=== PATIENT | female | born 1945 | race Caucasian/White ===

== ENCOUNTER 2016-09-27 15:28 | Emergency (ER) | payer OTHER ==
[~2016-09-27] VITALS: Ht 152.4 cm; Wt 75.5 kg
[~2016-09-27 15:28] MED LIST: Ativan PO; Calcium Carbonate/Vi PO; Desyrel PO; Ecotrin PO; Feosol PO; Garlic PO; Hydrodiuril,Oretic,E PO; LIDODERM 5% P1 PATCH TD; Lopid PO; Lotensin PO; Muro-128 5% Ophth So RIGHT EYE; Norvasc PO; OMEGA 3-6-91200 MG PO; Ocuvite PO; Pravachol PO; Pred Forte 1%,Omnipr LEFT EYE; PriLOSEC PO; Senokot S,Pericolace PO; Vitamin D PO; Zoloft PO; celeBREX PO; oxyCODONE PO
[2016-09-27] MEDS ORDERED: ATIVAN2 MG PO (16:10)
[2016-09-27] MEDS ORDERED: LORAZEPAM1 MG PO (16:10)
[2016-09-27] MEDS ORDERED: CALCIUM PO (16:12)
[2016-09-27] MEDS ORDERED: PRAVASTATIN SOD40 MG PO (16:14)
[2016-09-27] MEDS ORDERED: MURO-128 5300 DROP/1 LEFT EYE (16:15)
[2016-09-27] MEDS ORDERED: AMLODIPINE BESYL5 MG PO (16:17)
[2016-09-27] MEDS ORDERED: BENAZEPRIL HCL20 MG PO (16:17)
[2016-09-27] MEDS ORDERED: AMITRIPTYLINE H10 MG PO (16:18)
[2016-09-27] MEDS ORDERED: TRIAMCINOLONE A15 G2 TP (16:18)
[2016-09-27] MEDS ORDERED: OXYCODONE-APAP1 EAC6 PO (16:19)
[2016-09-27] MEDS ORDERED: METFORMIN HCL500 M1 PO (16:20)
[2016-09-27] MEDS ORDERED: OMEPRAZOLE20 MG PO (16:20)
[2016-09-27 16:59] LABS: HEMATOCRIT 39.1 % (36.0-46.0); MCH 31.3 PG (29.0-34.0); MCHC 34.5 G/DL (30.0-36.0); MCV 90.7 FL (83-99); MEAN PLAT.VOLUME 9.7 uM^3 (9.5-12.4); PLATELET COUNT 310 K/uL (156-360); RBC DIS.WIDTH-CV 13.7 % (11.8-14.6); RED BLOOD COUNT 4.31 M/uL (3.80-5.20); WHITE BLOOD COUNT 7.9 K/uL (4.1-10.2)
[2016-09-27 17:08] LABS: CHLORIDE 101 mEq/L (99-109); POTASSIUM 3.7 mEq/L (3.7-5.4); SODIUM 140 mEq/L (136-147)
[2016-09-27 17:09] LABS: GLUCOSE 99 mg/dL (70-99)
[2016-09-27 17:11] LABS: ANION GAP 14 MEQ/L (2-14)
[2016-09-27 17:13] LABS: GFR ESTIMATE (CALCULATED) > 59 mL/min/
[2016-09-27 17:14] LABS: UREA NITROGEN (BUN) 18 mg/dL (9-23)
[2016-09-27 17:20] LABS: ADD MIUA? NO; BILIRUBIN NEGATIVE; BLOOD NEGATIVE; COLOR YELLOW ((YELLOW)); GLUCOSE (STRIP) NEGATIVE; KETONES NEGATIVE; LEUKOCYTES NEGATIVE; NITRITE NEGATIVE; PROTEIN (STRIP) NEGATIVE; SPECIFIC GRAVITY 1.012 (1.000-1.030); UROBILINOGEN 0.2 MG/DL (0.2-1.0)
[2016-09-27 21:30] VITALS: BP 145/82
== END 2016-09-27 21:49 | disposition home or self-care (01) ==
LOC: EME 15:28
PROVIDERS: Emergency Medicine
DX: K92.2 Gastrointestinal hemorrhage, unspecified (principal); R10.30 Lower abdominal pain, unspecified; I10 Essential (primary) hypertension; Z96.652 Presence of left artificial knee joint; Z96.651 Presence of right artificial knee joint
CPT/HCPCS: 74177; 80048; 81003; 85027; 99281; 99285; J2270; J2405; J7030

== ENCOUNTER → 2016-10-27 | Outpatient (CLI) | payer OTHER ==
[~2016-10-27] VITALS: Ht 152.4 cm; Wt 72.6 kg
[~2016-10-27] MED LIST changes: +AMITRIPTYLINE H10 MG PO; +AMLODIPINE BESYL5 MG PO; +ATIVAN1 MG PO; +ATIVAN2 MG PO; +BENAZEPRIL HCL20 MG PO; +CALCIUM 500-VI1 EACH PO; +CALCIUM PO; +DESYREL100 MG PO; +FISH OIL 1,2001 EAC4 PO; +HYDROCHLOROTHIA25 MG PO; +LORAZEPAM1 MG PO; +LORAZEPAM2 MG PO; +METFORMIN HCL500 M1 PO; +METFORMIN HCL500 M4 PO; +MURO-128 5300 DROP/1 LEFT EYE; +NORCO 7.5/321 TABLET PO; +NORVASC5 MG PO; +OCUVITE TABLET1 EACH PO; +OMEPRAZOLE20 MG PO; +OXYCODONE-APAP1 EAC6 PO; +PRAVACHOL40 MG PO; +PRAVASTATIN SOD40 MG PO; +PRILOSEC20 MG PO; +TRIAMCINOLONE A15 G2 TP; +TYLENOL REGULA325 MG PO
[2016-10-27 12:45] LABS: POINT-OF-CARE METER ID UU13113694
== END | disposition home or self-care (01) ==
LOC: AMB 11:50
PROVIDERS: Internal Medicine
PROC: 0DBE8ZZ Excision of Large Intestine, Via Natural or Artificial Opening Endoscopic (ICD-10-PCS; principal; 2016-10-27)
DX: K62.5 Hemorrhage of anus and rectum (principal); K63.89 Other specified diseases of intestine; D12.0 Benign neoplasm of cecum; D12.3 Benign neoplasm of transverse colon; K64.8 Other hemorrhoids; K62.89 Other specified diseases of anus and rectum
CPT/HCPCS: 82948; 88305; 93005; J2250; J3010